=== PATIENT | male | born 1950 | race Caucasian/White ===

== ENCOUNTER 2017-06-10 07:45 | Day surgery (SDC) | payer OTHER, MEDICARE ==
[2017-06-04 14:33] VITALS: BMI 37.3
[2017-06-10] MEDS ORDERED: PROPOFOL 20 ML ONE ×2 (07:48)
[2017-06-10] MEDS ORDERED: LIDOCAINE HCL/PF 2% SDV 5ML VIAL ONE (07:49)
[2017-06-10 08:14] VITALS: TEMP 98
[2017-06-10] MEDS ORDERED: AMPICILLIN 2 GM/100 ML BAG (PRE-DOCKED) IVPB ONE (09:14)
[2017-06-10] MEDS ORDERED: GENTAMICIN SO4 80 MG/2 ML VIAL IVPB ONE (09:15)
[2017-06-10 09:53] VITALS: BP 102/60; PULSE 60
== END 2017-06-10 10:10 | disposition home or self-care (01) ==
LOC: FASU-ENDO 07:45
PROVIDERS: ATTEND Internal Medicine Gastroenterology
PROC: 0DJD8ZZ Inspection of Lower Intestinal Tract, Via Natural or Artificial Opening Endoscopic (ICD-10-PCS; principal; 2017-06-10 09:19)
DX: Z86.010 Personal history of colon polyps (principal); K57.30 Diverticulosis of large intestine without perforation or abscess without bleeding

== ENCOUNTER 2020-02-01 09:00 | Day surgery (SDC) | payer OTHER, MEDICARE ==
[2020-01-25 16:01] VITALS: BMI 39.2
[2020-02-01] MEDS ORDERED: IOHEXOL 300 MG/ML INFUS..BTL IV ONE ×2 (10:12→12:12)
[2020-02-01] MEDS ORDERED: PROPOFOL 20 ML ONE ×2 (10:42→12:34)
[2020-02-01] MEDS ORDERED: MIDAZOLAM HCL 2 MG/2 ML SINGLE DOSE VIAL ONE (10:42)
[2020-02-01] MEDS ORDERED: IBUPROFEN 800 MG/8 ML IJ IVPB SCH (11:45)
[2020-02-01] MEDS ORDERED: DEXTROSE 5%-0.45% SALINE 1,000 ML IV SCH (11:45)
[2020-02-01] MEDS ORDERED: ACETAMINOPHEN 1000 MG/100 ML VIAL (NON FORMULARY) IVPB ONE (11:46)
[2020-02-01] MEDS ORDERED: ceFAZolin SODIUM 1 GM VIAL IVPB ONE (11:55)
[2020-02-01] MEDS ORDERED: ACETAMINOPHEN INJECTION 100 ML IVPB ONE (13:00)
[2020-02-01 13:47] VITALS: TEMP 98.1
[2020-02-01] MEDS ORDERED: LACTATED RINGERS SOLUTION 1,000 ML IV SCH (14:00)
[2020-02-01 15:18] VITALS: BP 152/93; PULSE 63
== END 2020-02-01 15:41 | disposition home or self-care (01) ==
LOC: JASU-SURG 09:00
PROVIDERS: ATTEND Urology
PROC: 0TC38ZZ Extirpation of Matter from Right Kidney Pelvis, Via Natural or Artificial Opening Endoscopic (ICD-10-PCS; principal; 2020-02-01 10:30)
PROC: 0TC68ZZ Extirpation of Matter from Right Ureter, Via Natural or Artificial Opening Endoscopic (ICD-10-PCS; 2020-02-01 10:30)
PROC: 0T768DZ Dilation of Right Ureter with Intraluminal Device, Via Natural or Artificial Opening Endoscopic (ICD-10-PCS; 2020-02-01 10:30)
PROC: BT1DZZZ Fluoroscopy of Right Kidney, Ureter and Bladder (ICD-10-PCS; 2020-02-01 10:30)
DX: N20.0 Calculus of kidney (principal); N20.1 Calculus of ureter
CPT/HCPCS: 76000-TC-FY; 88300-TC; 94760; J0131

== ENCOUNTER 2020-11-29 04:14 | Day surgery (SDC) | payer OTHER, MEDICARE ==
[2020-11-29 10:55] VITALS: BMI 38.7
[2020-11-29] MEDS ORDERED: MIDAZOLAM HCL 2 MG/2 ML SINGLE DOSE VIAL ONE ×2 (12:56)
[2020-11-29] MEDS ORDERED: DEXTROSE 5%-0.45% SALINE 1,000 ML IV SCH (13:00)
[2020-11-29] MEDS ORDERED: PROPOFOL 20 ML ONE (13:03)
[2020-11-29] MEDS ORDERED: ceFAZolin 2 GRAM PREMIX BAG IVPB ONE (13:04)
[2020-11-29] MEDS ORDERED: ACETAMINOPHEN 1000 MG/100 ML VIAL (NON FORMULARY) IVPB ONE (14:00)
[2020-11-29 14:57] VITALS: BP 131/78; PULSE 61; TEMP 98.6
== END 2020-11-29 14:40 | disposition home or self-care (01) ==
LOC: JASU-SURG 04:14
PROVIDERS: ATTEND Urology
PROC: 0TF4XZZ Fragmentation in Left Kidney Pelvis, External Approach (ICD-10-PCS; principal; 2020-11-29 12:30)
DX: N20.0 Calculus of kidney (principal)